=== PATIENT | female | born 1960 | race Caucasian/White ===

== ENCOUNTER 2017-04-16 12:33 | Emergency (ER) | payer OTHER ==
--- NOTE | 2017-04-16 13:27 | EDPHY ---
H & P Time Seen by Provider: 04/16/17 12:55 HPI/ROS: Chief complaint. Blue finger tip HPI. Patient is a 56-year-old female with history Raynaud's disease. Her symptoms seem to be precipitated by stress and exposure to cold. 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 Last week the tip of her right 3rd finger was white for several days. Then turned blue for the past several days. She was concerned about infections so she has been soaking her finger in warm water with Epsom salts and applying antibiotic ointment. As she was driving today and placing her hands on the warm steering wheel she felt blood flowing into the tip of her finger and her symptoms have resolved. Her finger is now pink and has returning normal sensation. While her finger tip was white and blue however she did have altered sensation and numbness to the tip finger. It was also somewhat tender to touch which continues but is resolving. She has had similar symptoms previously. She has not otherwise had recent exposure to cold. There has been no trauma. She has been working in an area where there is air movement from a fan. She has no other symptoms. ROS Constitutional. no fever/chills, no weakness Eyes. no problems with vision ENT. no sore throat, no nasal drainage Cardiovascular. no chest pain Respiratory. no shortness of breath, no cough Abdominal. no abdominal pain, no nausea/vomiting, no diarrhea . no problems urinating MS. Blue finger tip now resolved Skin. no rash Lymph. no swollen glands Neuro. no headache, no dizziness, no difficulty walking or with speech Past Medical/Surgical History: Past medical history significant for anxiety breast cancer, hemochromatosis, scleroderma, appendectomy Social History: , nonsmoker, no alcohol Smoking Status: Never smoked Physical Exam: General Appearance: Alert pleasant well-developed female distress vital signs stable Eyes: Pupils equal and round no pallor or injection. ENT, Mouth: Mucous membranes are moist. Respiratory: There are no retractions, lungs are clear to auscultation. Cardiovascular: Regular rate and rhythm. Gastrointestinal: Abdomen is soft and nontender, no masses, bowel sounds normal. Neurological: Awake and alert, sensory and motor exams grossly normal. Skin: Warm and dry, no rashes. Musculoskeletal: Neck is supple nontender. Extremities symmetrical, full range of motion. The right 3rd it finger shows it to be pink and normal sensation. Capillary refill is less than 2 seconds and is consistent with capillary refill of adjacent fingers. There is no evidence for ulceration. Again sensation now is relatively normal. There is no evidence for paronychia. Psychiatric: Patient is oriented X 3, there is no agitation. Constitutional: Initial Vital Signs Temperature (C) 37 C 04/16/17 12:37 Heart Rate 74 04/16/17 12:37 Respiratory Rate 14 04/16/17 12:37 Blood Pressure 146/78 H 04/16/17 12:37 O2 Sat (%) 97 04/16/17 12:37 O2 Delivery Mode Room Air Allergies/Adverse Reactions: clarithromycin [From Biaxin] Allergy (Verified 11/25/14 10:56) codeine Allergy (Verified 12/19/13 08:57) Penicillins Allergy (Verified 12/19/13 08:57) prednisone Allergy (Verified 12/19/13 08:57) Home Medications: Medication Instructions Recorded Flonase 12/19/13 IBUPROFEN 12/19/13 LORAZEPAM 12/19/13 Famotidine [Pepcid 20 MG (*)] 20 mg PO BID #10 tab 11/25/14 diphenhydrAMINE [Benadryl] 1 - 2 tab PO Q6 #20 tab 11/25/14 predniSONE 20 mg PO DAILY 4 Days 11/25/14 Medical Decision Making ED Course/Re-evaluation: Patient and I had a discussion about treatment plan including medication. Talked about paronychia signs and symptoms. Her symptoms have completely resolved at this point. She does not want to pursue further medication at this point in time. We discussed importance of follow-up as well as criteria for return. She expresses understanding and agreement Differential Diagnosis: It sounds like the patient had ischemia secondary to Raynaud's phenomenon. At this point the exam is normal and her symptoms have completely resolved. No evidence for paronychia or trauma or ulceration or continuing ischemia Departure - Departure Disposition: Home, Routine, Self-Care Clinical Impression: Raynaud phenomenon Qualifiers: Raynaud?s-associated gangrene presence: without gangrene Qualified Code(s): I73.00 - Raynaud's syndrome without gangrene Condition: Good Instructions: Paronychia (ED) Additional Instructions: Warm compresses or soaks to fingers 2-3 times daily next 2 days. Continue your regular medications. Caution with cold exposure. Return for worsening symptoms. As we discussed, there are medications that will help control these symptoms should your symptoms worsen or increase in frequency I am giving you paronychia instructions which as we discussed is the name for infection around the nail bed and cuticle. Should you have increased pain, swelling, redness to the cuticle return to the emergency department for treatment or see your regular physician Referrals: Sarah Cerna MD [Primary Care Provider] - As per Instructions
[2017-04-16 13:41] VITALS: BP 114/76; PULSE 81; RESP 19; TEMP 98.8; O2SAT 96
== END 2017-04-16 13:40 | disposition home or self-care (01) ==
DX: I73.00 Raynaud's syndrome without gangrene (principal); Z85.3 Personal history of malignant neoplasm of breast

== ENCOUNTER → 2017-05-15 | Outpatient (CLI) | payer OTHER | LOC: BMCIMAGING 16:28 | PROVIDERS: ATTEND Family Medicine | DX: I82.431 Acute embolism and thrombosis of right popliteal vein (principal) ==

== ENCOUNTER → 2017-07-29 | Outpatient (CLI) | payer OTHER | LOC: FIMAGING 16:54 | PROVIDERS: ATTEND Surgery | DX: S63.254A Unspecified dislocation of right ring finger, initial encounter (principal) ==